=== PATIENT | male | born 1990 | race Hispanic/Latino ===

== ENCOUNTER → 2019-03-03 | Day surgery (SDC) | payer BC ==
[~2019-03-03] MED LIST: ACETAMINOPHEN/CODEINE 300MG - 30MG TAB ONE; BUPIVACAINE HCL 0.5% INJ 30 ML VIAL INJ ONE; CEFAZOLIN SOD 1 GM/NS 50ML 50 ML IV ONE; DEXAMETHASONE SOD PHOS INJ 4 MG/ML VIAL ONE; FENTANYL CITRATE/PF 100MCG/2 ML INJ ONE; HYDROMORPHONE 2MG/ML 2 MG/ML ML ONE; LIDOCAINE HCL 2% LOCAL INJ 5 ML SDV VIAL INJ ONE; MIDAZOLAM HCL 2 MG/2 ML VIAL ONE; NEOSTIGMINE 1 MG/ML 10ML VIAL ONE; ONDANSETRON HCL INJ 2MG/ML 2ML 2 MG/ML VIAL ONE; PROPOFOL IV EMULSION 10 MG/ML 20 ML VIAL ONE; SEVOFLURANE INHAL SOLN 250 ML PEN BTL ONE; TYLENOL WITH C1 EACH PO
--- OUTSIDE RECORDS SUMMARY | 2019-03-03 10:22 | XMS REPORT ---
[facility] Address Unknown Phone Unavailable Care Team Providers Care Vegetable Cutter Name Role Phone Unavailable Unavailable Payers Payer Name Policy Type Policy Number Effective Date Expiration Date Problems This patient has no known problems. Allergies, Adverse Reactions, Alerts Allergy Name Allergy Type Status Severity Reaction(s) Onset Date Inactive Date Treating Clinician Comments No Known Allergies DA Active U 2019-02-25 00:00:00 No Known Drug Allergies DA Active U 2002-08-08 00:00:00 Medications This patient has no known medications. Results Test Description Test Time Test Comments Text Results Atomic Results Result Comments - XR ANKLE 3 + V RT 2019-02-25 19:26:00 FAX: Alex Hernandez [phone] Edward: [place] St: REG Name: PHILIPPE CARRILLO [facility] FSED : 1990 Age/S: 28/M [address] #: [id number] Loc: [facility] Phys: Alex Hernandez MD [place], [place] [address] Acct: [id number] Dis Date: Status: REG ER PHONE #: Exam Date: 02/25/20191923 FAX #: Reason: Right foot ankle pain EXAMS: CPT CODE: [id number] XR ANKLE 3 + V RT [id number] REASON FOR EXAM: Right foot ankle pain EXAM ORDER DATE: 02/25/2019 6:39 PM Ordering Derek: Alex Hernandez MD PROCEDURE: - XR ANKLE 3 + V RT FINDINGS: 3 views of the right ankle were obtained. An oblique fracture of the distal right fibula noted slightly proximal to the ankle mortise. The ankle mortise appears intact. Mild focal soft tissue swelling seen in the lateral malleolus.. IMPRESSION: Minimally displaced oblique fracture of the distal right fibula at 1926 Reported and signed by: Laci Sweet M.D. CC: Alex Hernandez MD Technologist: Alison Solano Trnscrd Date/Time/By: 02/25/2019 (1925) : By: Sudhir Orig Print D/T: S: 02/25/2019 (1928) PAGE 1 Signed Report
[2019-03-03 14:30] VITALS: BP 131/80
--- NOTE | 2019-04-23 00:18 | Operative Report ---
DATE OF PROCEDURE: 03/03/2019 SURGEON: Alfred Bermudez MD CORE MACHINE OPERATOR: Ke Shen PA-C. PREOPERATIVE DIAGNOSIS: Right ankle fracture with syndesmosis disruption. POSTOPERATIVE DIAGNOSIS: Right ankle fracture with syndesmosis disruption. PROCEDURE: Open reduction and internal fixation right ankle with syndesmosis repair (TightRope construct). INDICATIONS: The patient is a 28-year-old gentleman, who has a fracture of his right ankle. There is evidence of widening of the medial clear space. The findings and options have been discussed. We recommended an open reduction with internal fixation. The risks and benefits have been explained. He states he understands and wishes to proceed. PROCEDURE IN DETAIL: The patient was brought to the operating room and placed under general anesthetic. His right lower extremity was prepped and draped in a sterile manner. A preoperative time-out was performed. The extremity was exsanguinated and the proximal tourniquet was inflated to 300 mmHg. Initial incision was made over the distal fibula. The fracture site was carefully exposed. A lobster claw reduction clamp was placed across the fracture. A lag screw was placed from anterior to posterior. I then fixed a seven hole one-third semitubular plate over the distal fibula. This was fixed with a combination of cortical and cancellous screws. Intraoperative x-rays revealed persistent widening of the medial clear space. An Arthrex TightRope fixation device was then used to fix the syndesmosis. The drill was placed across the distal fibula. The TightRope was passed and the Endobutton was deployed in the far medial cortex of the distal tibia. The ankle was held in a reduced fashion and the TightRope was secured. Intraoperative x-rays confirmed anatomic reduction of the medial clear space. The wound was irrigated and closed. Subcuticular Vicryl and nylon stitches were placed. A sterile bandage and splint were applied. He was extubated and transported to the recovery room in stable condition. Blood loss was minimal. All needle and sponge counts were correct. Alfred Bermudez MD DR/ANABEL /[id number]
== END | disposition home or self-care (01) ==
LOC: OR 10:19
PROVIDERS: ATTEND Specialist
DX: S82.61XA Displaced fracture of lateral malleolus of right fibula, initial encounter for closed fracture (principal); X58.XXXA Exposure to other specified factors, initial encounter; Y92.009 Unspecified place in unspecified non-institutional (private) residence as the place of occurrence of the external cause; Z68.41 Body mass index [BMI] 40.0-44.9, adult
CPT/HCPCS: 27829; 27792; C1713 ×5; J0690; J1100; J1170; J2001; J2250; J2405; J2704; J2710